=== PATIENT | female | born 1970 | race Caucasian/White ===

== ENCOUNTER 2019-03-24 18:18 | Emergency (ER) | payer OTHER ==
[~2019-03-24] VITALS: Ht 167.6 cm; Wt 60.8 kg
[~2019-03-24 18:18] MED LIST: MEDROL8 MG PO; NORFLEX100MG PO; ORPH100T PO; ULTRACET PO
== END 2019-03-24 21:06 | disposition home or self-care (01) ==
LOC: ER 18:18
DX: M75.51 Bursitis of right shoulder (principal); M62.830 Muscle spasm of back

== ENCOUNTER 2020-09-24 13:24 | Emergency (ER) | payer OTHER ==
[~2020-09-24] VITALS: Ht 162.6 cm; Wt 64.4 kg
== END 2020-09-24 14:58 | disposition home or self-care (01) ==
LOC: ER 13:24
DX: M94.0 Chondrocostal junction syndrome [Tietze] (principal)

== ENCOUNTER 2023-07-31 08:55 | Emergency (ER) | payer OTHER ==
[~2023-07-31] VITALS: Ht 167.6 cm; Wt 71.7 kg
[2023-07-31] MEDS ORDERED: ACETAMINOPHEN 500 MG GEL..CAP PO ONE (11:00)
[2023-07-31] MEDS ORDERED: TRAMADOL HCL 50 MG TABLET PO ONE (15:00)
== END 2023-07-31 15:14 | disposition home or self-care (01) ==
LOC: ER 08:55
DX: R07.9 Chest pain, unspecified (principal); M62.838 Other muscle spasm; Z85.43 Personal history of malignant neoplasm of ovary; Z88.6 Allergy status to analgesic agent